=== PATIENT | male | born 1975 | race Two or more races ===

== ENCOUNTER 2017-02-21 18:03 | Emergency (ER) | payer OTHER ==
[~2017-02-21] VITALS: Ht 172.7 cm; Wt 70.3 kg
[2017-02-21] MEDS ORDERED: Bacitracin Oint UD TOPIC ONE (18:45)
[2017-02-21] MEDS ORDERED: Lidocaine 1% Plain 30 ml INJ ONE (18:45)
[2017-02-21 18:58] VITALS: BP 127/63
[2017-02-21] MEDS ORDERED: ANTIBIOTIC28.4 GM TP (19:46)
[2017-02-21] MEDS ORDERED: IBUPROFEN600 MG ORAL (19:46)
[2017-02-21 21:08] VITALS: BP 127/63
--- NOTE | 2017-02-21 22:14 | Emergency Room Report ---
History of Present Illness General Chief Complaint: Laceration Source: Patient Present Illness [facility] The patient is a 41-year-old male presenting for left knee pain. The patient states that he struck the knee on a metal object while working. He noticed pain in bleeding. Pain described as a 2/10 dull ache and does not radiate. Pain worse with touch and walking. He denies any other injury. Last tetanus shot was within this year. He denies any other symptoms including nausea, vomiting, fever, chills, numbness or tingling Allergies: Coded Allergies: No Known Allergies (Unverified , 02/21/17) Patient History Past Medical History: see triage record Pertinent Family History: none Reviewed Nursing Documentation: PMH: Agreed, PSxH: Agreed Nursing Documentation-PMH Past Medical History: No Stated History Review of Systems All Other Systems: negative except mentioned in HPI Physical Exam Vital Signs Date Time Temp Pulse Resp B/P Pulse Ox O2 Delivery O2 Flow Rate FiO2 02/21/17 18:28 98.8 58 17 127/63 98 Room Air Sp02 EP Interpretation: reviewed, normal General Appearance: no apparent distress, alert, GCS 15, non-toxic Head: normocephalic, atraumatic Eyes: bilateral eye PERRL, bilateral eye normal inspection ENT: hearing grossly normal, normal pharynx, no angioedema, normal voice Neck: full range of motion, supple/symm/no masses Musculoskeletal: normal range of motion, tender Neurologic: alert, oriented x3, responsive, motor strength/tone normal, sensory intact, speech normal Psychiatric: judgement/insight normal, memory normal, mood/affect normal, no suicidal/homicidal ideation Skin: normal color - medial L knee, no rash, normal turgor, laceration - 6cm linear laceration to the medial L knee Lymphatic: no adenopathy Procedures Laceration/Wound Repair Laceration/Wound Repair : Consent: Verbal Wound Location: lower extremity Wound's Depth, Shape: superficial, linear Wound Length (cm): 6 Wound Explored: clean Irrigated w/ Saline (ccs): 200 Betadine Prep?: Yes Anesthesia: 1% Lidocaine Volume Anesthetic (ccs): 6 Wound Debrided: minimal Wound Repaired With: sutures Suture Size/Type: 4:0, proline Number of Sutures: 6 Layer Closure?: No Sterile Dressing Applied?: Yes Splint Applied?: No Sling Applied?: No Patient Tolerated: Well Complications: None Medical Decision Making PA Attestation Dr. Lou is my supervising physician. Patient management was discussed with my supervising physician Diagnostic Impression: Primary Impression: Laceration ER Course The patient is a 41-year-old male presenting for left knee pain. Ddx considered include but not limited to fracture, tendon/ligament injury, avulsion, nerve damage PE: 6cm linear laceration to medial L knee. No edema. No ecchymosis. SILT. Minimal bleeding The wound was irrigated with normal saline and cleaned with betadine. A 27g needle was used to administer 6mL of lidocaine w.o epi for local anaesthesia. 6 sutures were placed with 4- prolene. The wound was well approximated and the patient tolerated the procedure well. The wound was then cleaned and bacitracin was applied. The patient will follow up with PMD and workers compensation. ER precautions given Last Vital Signs Date Time Temp Pulse Resp B/P Pulse Ox O2 Delivery O2 Flow Rate FiO2 02/21/17 21:08 98.8 73 17 127/63 98 Room Air Status: improved Disposition: HOME, SELF-CARE Condition: Improved Scripts Bacitracin Zinc (ANTIBIOTIC) 28.4 Gm Oint...g. 28.4 GM TP TID, #28 GM Prov: LAST BABIN 02/21/17 Ibuprofen* (MOTRIN*) 600 Mg Tablet 600 MG ORAL Q8H Y for For Pain, #30 TAB 0 Refills Prov: LAST BABIN 02/21/17 Patient Instructions: Laceration Care, Adult Additional Instructions: I discussed my findings with the patient. All questions and concerns have been answered. Treatment and medication compliance have been addressed. I advised the patient that they need to follow up with PMD in 7 days for wound check and suture removal. If you are unable to see PMD, return to the ED in 7 days. Return to ED if pain remains or worsens, you notice discharge from the wound, the wound continues to bleed, the suture/s fall out, you notice a fever or chills, or for any reason. Patient is advised to keep the wound clean and apply an antibacterial ointment. Patient verbalized understanding of discharge instructions. LAST BAIBN Feb 21, 2017 22:14
== END 2017-02-21 21:10 | disposition home or self-care (01) ==
LOC: EMR 19:05
DX: S81.012A Laceration without foreign body, left knee, initial encounter (principal); W22.8XXA Striking against or struck by other objects, initial encounter; Y93.9 Activity, unspecified; Y99.0 Civilian activity done for income or pay
CPT/HCPCS: 12002; 99284; J2001